=== PATIENT | female | born 1995 ===

== ENCOUNTER → 2017-08-18 | Outpatient (REF) | LOC: ZLAB.WCH 11:34 | DX: Z01.89 Encounter for other specified special examinations (principal) ==

== ENCOUNTER → 2017-12-29 | Outpatient (REF) | LOC: ZLAB.WCH 16:50 | DX: Z01.89 Encounter for other specified special examinations (principal) ==

== ENCOUNTER → 2018-05-29 | Outpatient (REF) | LOC: ZLAB.WCH 18:17 | DX: Z01.89 Encounter for other specified special examinations (principal) ==